=== PATIENT | female | born 1935 | race Caucasian/White ===

== ENCOUNTER → 2016-09-18 | Outpatient (CLI) | payer MEDICARE, OTHER ==
--- NOTE | 2016-09-18 16:52 | RADRPT ---
PROCEDURE: Right knee radiographs. CLINICAL INDICATION: Right knee pain. TECHNIQUE: Three views. Weight bearing. Frontal, lateral, and patellar view. COMPARISON: No prior studies are available for comparison. FINDINGS: There is no fracture or dislocation. The soft tissues are normal. There are degenerative changes with osteophytes arising from all 3 joint compartment margins. There is lateral joint compartment narrowing and subarticular sclerosis. There is no lytic or blastic lesion. There is no radiopaque foreign body. IMPRESSION: 1. Moderate to severe degenerative changes of the right knee. 2. No acute abnormality. RPTAT: QQ .Pradeep Jensen MD, MD Date Time Electronically viewed and signed by .Pradeep Jensen MD, on 09/18/2016 16:52 .R/
--- NOTE | 2016-09-18 16:53 | RADRPT ---
PROCEDURE: Left knee radiographs. CLINICAL INDICATION: Left knee pain. TECHNIQUE: Three views. Weight bearing. Frontal, lateral, and patellar view. COMPARISON: No prior studies are available for comparison. FINDINGS: There is no fracture or dislocation. The soft tissues are normal. There are degenerative changes with osteophytes arising from all 3 joint compartment margins. There is lateral joint compartment subarticular sclerosis. There is no joint space narrowing. There is no lytic or blastic lesion. There is no radiopaque foreign body. IMPRESSION: 1. Mild to moderate degenerative changes of the left knee. 2. No acute abnormality. RPTAT: QQ .Pradeep Jensen MD, MD Date Time Electronically viewed and signed by .Pradeep Jensen MD, MD on 09/18/2016 16:52 .R/
--- NOTE | 2016-09-18 23:48 | HKNOTE ---
DATE OF SERVICE: 09/18/2016 REFERRING PHYSICIAN: Dr. Brandy Payne; [address] [facility], [address] [place] [address]. MAIN COMPLAINT: Pain in both knees, worse on the right side. HISTORY OF MAIN COMPLAINT: Patient is an 80-year-old female who is referred by Dr. Payne with an MR I scan of her knee, for evaluation and treatment. Patient has had pain in both knees for approximately 10 years. There has been no history of injury to the knees. She recently moved to [place] from [place]. She had numerous cortisone injections into both knees in [place]. Since she has moved to [place], Dr. Payne has given her several cor tisone injections into the knees. The last injections have not given her much relief. One of her o rthopedic surgeons in [place] recommended that she have a right knee replacement about 2 years ago. She also states, "I have had a torn meniscus for about 5 years, but I didn't want to do anything abo ut it." PRESENT COMPLAINTS: Her pain is worse in the right knee. Pain varies between moderate to severe. Most of her pain is when she gets up from a sitting position. Neither of her knees locks, feels uns table, or swells. Her pain is aggravated by walking, weightbearing, and stair climbing. She is not able to run. She does not have rest pain or night pain. She takes diclofenac for the pain, and th is helps a fair amount. She has had 2 operations on her lumbar spine. She has no numbness or tingl ing in her legs. She does not use a walking aid. When she gets up and gets going, she can walk jed rly well, but the first 200 or 300 yards are painful. She does not limp except when she is in pain. Her leg lengths feel equal. She does not have a shoe lift. It is not easy for her to clip her to enails, but she can do it. She can put on her shoes and socks on both sides. PAST ORTHOPEDIC HISTORY/PREVIOUS ORTHOPEDIC OPERATIONS: None. PRIOR CORTISONE INTAKE: "Off and on for a long time." (10 years). SOCIAL HISTORY: She has never been an alcoholic. She takes an occasional glass of wine. She has not had any blood tests for arthritis. She has no other joint problems. She has never injur ed her hips or knees. 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 Hypertension. 2. Asthma as a child. 3. An irregular heart. PAST SURGICAL HISTORY: 1. Hysterectomy. 2. Benign breast tumor removed 3. Benign breast lump removed 1979. ALLERGIES: NONE. MEDICATIONS: Lisinopril 1 tablet a day at bedtime, Klor-Con 8 mEq daily at bedtime, misoprostol 1 t ablet daily at bedtime, diclofenac 2 tablets daily, metoprolol 25 mg 1 tablet daily at bedtime. FAMILY HISTORY: Noncontributory. SYSTEMS REVIEW: Age-related failing vision, history of skipping heartbeats, excess urination, hyper tension, leakage of urine, occasional constipation, hemorrhoids. HABITS: Patient quit smoking 40 years ago. She drinks an occasional glass of wine. UNDERCOVER AGENT: Dr. Brandy Payne; [address] [place] [address], [address] [address]. PHYSICAL EXAMINATION GENERAL: The patient is a remarkably youthful and fit-looking 81-year-old female. VITAL SIGNS: Height 5 feet 2 inches, weight 190 pounds. Blood pressure 135/65, temperature 99.0. GAIT: The patient's gait is antalgic. She walks without a walking aid. HIPS: Both hips have full range of motion without pain or tenderness around on either hip. NEUROLOGIC: Motor examination reveals no muscle deficit in the lower extremities. Deep tendon refle xes in the lower extremities: Right knee jerk +, left knee jerk +, right ankle jerk +, left ankle j erk +. Straight leg raising is negative bilaterally at 80 degrees. Lasegue and LUIGI tests are negat virgilio. RIGHT KNEE: The right knee shows normal alignment. Active and passive extension is 0 degrees. Activ e and passive flexion is 135 degrees. The medial and lateral collateral ligaments and cruciate ligam ents are intact. Obi test is negative. There is no effusion, tenderness, scarring, crepitus, or cysts. The patella tracks normally. There is no tenderness on the articular surface of the patella o r in the patellar groove. The Q angle is normal. 50 degrees of valgus alignment. Extension lacks 5 degrees, flexion is to 100 degrees. 6+ crepitus in the knee, none in the patella. 1+ effusion. Ma rked pain on attempting to force the knee into further flexion. LEFT KNEE: The left knee shows normal alignment. Active and passive extension is 0 degrees. Active and passive flexion is 135 degrees. The medial and lateral collateral ligaments and cruciate ligamen ts are intact. Oib test is negative. There is no effusion, tenderness, scarring, crepitus, or cy sts. The patella tracks normally. There is no tenderness on the articular surface of the patella or in the patellar groove. The Q angle is normal. Extension is full. Flexion lacks 25 degrees, 4+ crep itus in the knee, none in the patella. Patella tracks normally. IMAGING: Plain x-rays of the right knee obtained today at the [facility] were re viewed. These show marked valgus alignment of the right knee joint. The lateral compartment is com pletely arthritic with [id number] contact in the lateral compartment, subchondral sclerosis, large osteophytes around the lateral joint line. The patellofemoral joint shows excellent chondral space . Imaging of the left knee obtained today at the [facility] were reviewed. These s how 5 degrees valgus alignment. Marked narrowing of the lateral compartment as well as the medial c ompartment. Patellofemoral joint shows narrowing and lateral subluxation with large osteophytes. MRI scan of the right knee obtained by Dr. Brandy Payne on 08/14/[address] Dayana Sellers as showing "popliteal cyst measuring 5.5 x 1.40 x 0.3 cm. Nuclear degeneration of the anterior crucia te ligament. Multidirectional tear of the posterior horn of the medial meniscus. Mild to moderate chondromalacia medial compartment. Degenerative changes throughout the knee, most prominently the l ateral compartment to include meniscal maceration. DIAGNOSES: 1. Severe symptomatic degenerative osteoarthritis of the right knee. 2. Moderate degenerative osteoarthritis of the left knee with minimal pain. 3. Extensive conservative treatment for right knee arthritis. 4. Hypertension. 5. History of asthma. 6. History of irregular heartbeat. 7. History removal of a benign breast tumor. DISCUSSION: Patient is an 81-year-old female with arthritis of both knees. The recent MRI scan obt ained of the right knee shows a torn lateral meniscus. However, she has none of the classic symptom s of a torn meniscus, and she has quite severe arthritis of the right knee. MANAGEMENT: She is advised that she most certainly will need a right knee replacement at some time in the near future. An arthroscopic operation at this point would be a useless and wasted operation for her. She does not seem to feel that her right knee is very symptomatic at this time, but she h as noticed that the knee arthritis, most certainly will become worse with time, and eventually she w ill need a knee replacement. We also discussed her age; 80 years is approximately the time when health Kelty deteriorates fairly rapidly. We discussed the fact that it may be tate for her to have her knee replacement while she i s still relatively youthful and in good health. Knee arthritis book. Patient was referred to my Website: [employer]. DIAGNOSES: 1. Severe symptomatic degenerative osteoarthritis of the right knee. 2. Moderate degenerative osteoarthritis of the left knee with minimal pain. 3. Extensive conservative treatment for right knee arthritis. 4. Hypertension. 5. History of asthma. 6. History of irregular heartbeat. 7. History removal of a benign breast tumor. Patient will call to schedule her right knee replacement if and when she is ready to proceed. Dictated By: OWEN TAYLOR/EVELIN Conf#: [id number] DID#: [id number]
== END | disposition home or self-care (01) ==
LOC: HKI 16:15
DX: M17.0 Bilateral primary osteoarthritis of knee (principal); I10 Essential (primary) hypertension
CPT/HCPCS: 73562; G0463

== ENCOUNTER → 2016-10-08 | Outpatient (CLI) | payer MEDICARE, OTHER ==
[~2016-10-08] MED LIST: ADV10050 INHALATION; DICL75TA2 PO; FLUT9.9S NASAL; LISI1TAB8 PO; METO25TA7 PO; MISO200T3 PO; POTA-57 PO
--- NOTE | 2016-10-08 22:19 | HKNOTE ---
DATE OF SERVICE: 10/08/2016 Patient comes in for preoperative evaluation. She is scheduled to have a right total knee replaceme nt on 10/09/2016. She is seen on 10/08/2016. She has been cleared for surgery by Dr. Brandy Payne. Numerous questions were asked and answered. She read my booklet on knee arthritis and knee replacem ent surgery. She has not given any blood for autotransfusion. She understands the risks associated with using hospital blood. She is agreeable to using hospital blood if needed. Dictated By: OWEN TAYLOR/NTS Conf#: [id number] DID#: [id number]
== END | disposition home or self-care (01) ==
LOC: HKI 13:08
DX: Z01.818 Encounter for other preprocedural examination (principal); M25.561 Pain in right knee
CPT/HCPCS: G0463

== ENCOUNTER 2016-10-09 06:09 | Inpatient (IN) | payer MEDICARE, OTHER ==
[2016-10-08 15:35] VITALS: BMI 34.8
[~2016-10-09] VITALS: Ht 157.5 cm; Wt 86.6 kg
[2016-10-09] VITALS (28 sets, daily range): BP systolic 92–143; BP diastolic 44–70; PULSE 63–89; RESP 16–20; Ht 157.5 cm; Wt 86.6 kg
[~2016-10-09 06:09] MED LIST changes: +ACETAMINOPHEN 1000MG/100ML IV 100 ML IVPB ONE; -ADV10050 INHALATION; +CELECOXIB 200 MG CAP PO ONE; +DEXAMETHASONE 4 MG/ML 1 ML INJ IV ONE; -FLUT9.9S NASAL; +KNEE PAIN COCKTAIL VANCO INJ SCH; +LACTATED RINGER'S 1,000 ML IV* SCH; +LANSOPRAZOLE 30 MG CAP PO ONE; +ONDANSETRON 4 MG INJ IV ONE; -POTA-57 PO; +SOD CHLORIDE 0.9% IVPB ONE; +TRANEXAMIC ACID IVPB ONE; +VANCOMYCIN 1 GM (PMX) 250 ML IVPB ONE; +oxyCODONE (CR) 10 MG TAB [oxyCONTIN] PO ONE
--- NOTE | 2016-10-09 06:21 | RADRPT ---
PROCEDURE: Chest. CLINICAL INDICATION: Preop evaluation. TECHNIQUE: Single frontal view of the chest was obtained. COMPARISON: None. FINDINGS: The cardiac silhouette is within normal limits. The aortic arch is unremarkable. There is no focal consolidation, vascular congestion or pleural effusion. There is no pneumothorax. IMPRESSION: No evidence for active cardiopulmonary disease. .Sung Meeks MD, MD Date Time Electronically viewed and signed by .Sung Meeks MD, on 10/09/2016 06:20 .T/
[2016-10-09] MEDS ORDERED: BUPIVACAINE 0.5%/EPI (SDV) 30 ML INJ ONE (06:43)
[2016-10-09 06:48] LABS: INR 1.01; PARTIAL THROMBOPLASTIN TIME 31.6 Sec (25.0-35.0); PROTIME 13.3 Sec (12.2-14.2)
[2016-10-09] MEDS ORDERED: POLYMYXIN B 500000 UNIT INJ ONE (06:59)
[2016-10-09] MEDS ORDERED: ROPIVACAINE 0.2% 100 ML ONE (06:59)
[2016-10-09] MEDS ORDERED: TOBRAMYCIN 1.2 GM POWDER ONE (06:59)
[2016-10-09] MEDS ORDERED: VANCOMYCIN 1 GM INJ ONE (06:59)
[2016-10-09] MEDS ORDERED: METHYLENE BLUE 1% 10 ML INJ ONE (06:59)
[2016-10-09] MEDS ORDERED: BUPIVACAINE 0.25%/EPI (SDV) 30 ML INJ ONE (07:00)
[2016-10-09] MEDS ORDERED: SOD CHLORIDE 0.9% IRR SCH ×2 (07:00)
[2016-10-09] MEDS ORDERED: TRANEXAMIC ACID IRR SCH ×2 (07:00)
--- NOTE | 2016-10-09 07:07 | HPN ---
Date/Time of Note Date/Time of Note DATE: 10/09/16 TIME: 07:06 Interval H&P Admission Note Pt. seen H&P reviewed: No system changes NITA GALLOWAY PA-C Oct 09, 2016 07:07
[2016-10-09] MEDS ORDERED: PROPOFOL 20 ML ONE (07:11)
[2016-10-09] MEDS ORDERED: LIDOCAINE 2% (SDV) 5 ML INJ ONE (07:11)
[2016-10-09] MEDS ORDERED: FLUT9.9S NASAL (07:35)
[2016-10-09] MEDS ORDERED: ADV10050 INHALATION (07:35)
[2016-10-09] MEDS ORDERED: POTA-57 PO (07:35)
[2016-10-09] MEDS ORDERED: EPHEDrine SULFATE 50 MG/5 ML SYG ONE (07:55)
[2016-10-09] MEDS ORDERED: BACITRACIN 50000 UNITS INJ IRR ONE (08:44)
[2016-10-09] MEDS ORDERED: ROPIVACAINE 0.2% 100ML BAG INJ ONE (08:47)
--- NOTE | 2016-10-09 10:41 | RADRPT ---
PROCEDURE: Intraoperative imaging of the right knee with fluoroscopy. CLINICAL INDICATION: Right knee pain. Intraoperative. TECHNIQUE: 2 images of the right knee were obtained in the operating room with an image intensifie r. No radiologist was in attendance. 4.6 seconds of fluoroscopy time was used. COMPARISON: 09/18/2016. FINDINGS: Images demonstrate components of a total right knee arthroplasty. IMPRESSION: 1. Intraoperative imaging of the right knee. RPTAT: QQ .Pradeep Jensen MD, MD Date Time Electronically viewed and signed by .Pradeep Jensen MD, MD on 10/09/2016 10:41 .R/
--- NOTE | 2016-10-09 10:42 | RADRPT ---
PROCEDURE: Right knee radiograph. CLINICAL INDICATION: Right knee pain. Intraoperative. TECHNIQUE: Single lateral intraoperative image. COMPARISON: Prior study done earlier the same day. FINDINGS: There are components of a total right knee arthroplasty. IMPRESSION: 1. Satisfactory intraoperative imaging of the right knee. RPTAT: QQ .Pradeep Jensen MD, Date Time Electronically viewed and signed by .Pradeep Jensen MD, on 10/09/2016 10:41 .R/
[2016-10-09] MEDS ORDERED: hydrALAzine 20 MG INJ IV PRN (11:00)
[2016-10-09] MEDS ORDERED: HYDROmorphONE 0.2 MG/ML PCA IV PRN (11:00)
[2016-10-09] MEDS ORDERED: ONDANSETRON 4 MG INJ IV PRN (11:00)
[2016-10-09] MEDS ORDERED: LABETALOL HCL 20MG INJ IV PRN (11:00)
[2016-10-09] MEDS ORDERED: ASPIRIN (EC) 325 MG TAB PO ONE (11:00)
[2016-10-09] MEDS ORDERED: NA PHOSPHATE/BIPHOS 133 ML ENEMA PR PRN (11:00)
[2016-10-09] MEDS ORDERED: MEPERIDINE 25 MG INJ IV PRN (11:00)
[2016-10-09] MEDS ORDERED: BISACODYL 10 MG SUPP PR PRN (11:00)
[2016-10-09] MEDS ORDERED: BETHANECHOL 25 MG TAB PO PRN (11:00)
[2016-10-09] MEDS ORDERED: MAGNESIUM HYDROXIDE 30ML CUP PO PRN (11:00)
[2016-10-09] MEDS ORDERED: MEPERIDINE 10 MG/ML 30 ML PCA IV PRN (11:00)
[2016-10-09] MEDS ORDERED: DOCUSATE SODIUM 100 MG CAP PO ONE (11:00)
[2016-10-09] MEDS ORDERED: METOCLOPRAMIDE 10 MG INJ IV PRN (11:00)
[2016-10-09] MEDS ORDERED: HYDROmorphONE (0.2 MG/ML) 10ML SYG IV PRN ×2 (11:00)
[2016-10-09] MEDS ORDERED: EPHEDrine SULFATE 50 MG/5 ML SYG IV PRN (11:00)
[2016-10-09] MEDS ORDERED: COUMADIN NOTE XX SCH (11:00)
[2016-10-09] MEDS ORDERED: MIDAZOLAM 1 MG/ML 2 ML INJ IV PRN (11:00)
[2016-10-09] MEDS ORDERED: morphine (1 MG/ML) 10ML SYRINGE IV PRN ×2 (11:00)
[2016-10-09] MEDS ORDERED: FENTAnyl 50 MCG/ML VIAL IV PRN ×2 (11:00)
[2016-10-09] MEDS ORDERED: NALOXONE (0.4 MG/ML) INJ IV PRN (11:00)
[2016-10-09] MEDS ORDERED: DIPHENHYDRAMINE 50 MG INJ IV PRN (11:00)
[2016-10-09] MEDS: ONDANSETRON 4 MG INJ IV SCH ×3 (11:00→23:30)
[2016-10-09] MEDS: CEFAZOLIN 1 GM/50 ML (PMX) 50 ML IVPB SCH ×2 (11:38→20:17)
--- NOTE | 2016-10-09 11:41 | OPR ---
DATE OF OPERATION: 10/09/2016 SURGEON: Eliceo Fuentes MD SHIPPING SPECIALIST: DARREL Garrett ANESTHESIOLOGIST: Dr. Rangel PREOPERATIVE DIAGNOSIS: Exceedingly severe degenerative osteoarthritis of the right knee. POSTOPERATIVE DIAGNOSIS: Exceedingly severe degenerative osteoarthritis of the right knee. OPERATION PERFORMED: Total knee replacement (arthroplasty of the knee, condylar plateau medial and lateral compartments with patella resurfacing, CPT 30832). FINDINGS AT SURGERY: Surrounding the right tibia, severe degenerative osteoarthritis of the right k nee in all 3 compartments. There is no normal articular cartilage present anywhere. Most of the la teral compartment and patellofemoral joint had only eburnated bone which on the tibial side was erod ed by several millimeters to give a quite severe valgus alignment to the knee. The tibia was bowed. Using a longitudinal britany, the anterior aspect of the tibial tubercle and the ankle joint imaging w as used to find the best place and alignment for the cutting jig. Because of the severe bowing of t he tibia, it was not possible to align the center of the knee proximally with the center of the ankl e joint. We therefore had to make allowance for the bowing by positioning the proximal end of the a lignment britany in the best possible alignment for the proximal tibia with ____ ankle. The bone was ve ry soft and a stemmed tibial component was therefore used. JUSTIFICATION FOR SURGERY: The knee was found to have end-stage osteoarthritis. The patient is a v marcelle active 81-year-old whose lifestyle is markedly affected by the arthritic knee. An extensive cou rse of conservative care has been tried prior to embarking on the knee replacement operation. There can be no reasonable expectation that any further conservative treatment will make any improvement to this patient's pain level and lifestyle. The risks and complications of the surgery were discuss ed with the patient at the preoperative visit as well as the risks and possible complications of blo od transfusion using hospital blood. The patient is agreeable to using hospital blood if needed. DESCRIPTION OF PROCEDURE: The patient was given intravenous antibiotics 1 hour prior to surgery. A n epidural anesthetic was initiated in the ICU holding area. The patient was taken to the operating room and given a light general anesthetic. The leg, foot, and ankle were prepared and draped in th e usual sterile fashion. The center of the ankle was marked at the midpoint between the 2 malleoli with a sterile marking pen. A tourniquet around the thigh was inflated to 225 mmHg after the leg mckeon d been exsanguinated using an Esmarch bandage. The tourniquet was inflated at the initiation of pro cedure for a short period and was then again reinflated at the time of cementing the components part s. The total tourniquet time was 46 minutes. A longitudinal incision was made over the anterior aspect of the knee. The incision extended from t he tibial tubercle to a point just above the patella. The medial capsule was exposed by sharp and eric estrella dissection, and was incised 1/4 inch medial to the patella. A marking stitch was set on each s peggy of the incision at the midpoint of the capsule so as to enable accurate reapproximation at the e nd of the operation. A vastus split was made in the vastus medialis extending from the superior coretta e of the patella for approximately 5 cm between the line with the muscle fibers. The ends of the mu scle split at the patella were marked with a marking stitch on each side for later accurate reapprox imation. The patella was reflected laterally and osteophytes around the rim of the patella were rem fabiana. Osteophytes along the lateral femoral condyle were removed so as to facilitate lateral reflec tion of the patella. Posteromedial osteophytes were removed on the lateral side as well, so as to f ree up the lateral collateral ligament. Medial femoral osteophytes and posteromedial femoral osteop hytes were also removed at this time. This allowed for the knee to be brought into a more normal al ignment. A segment of bone was cut from the articular surface of the patella using a caliper to det ermine the exact thickness to be removed. The remaining thickness of the patella was 17 mm. The kn ee was flexed, and the patella was displaced laterally without eversion. Osteophytes in the femoral notch were removed. The remnants of the medial and lateral menisci were excised and the cruciate l igaments were excised. The medial collateral ligament was elevated as an osteo-periosteal flap from the proximal tibia. The distal end of the medial collateral ligament remained attached to the tibi a throughout the operation. The tibia was retracted forward with Hohmann retractor, inserted union contract representative ior to the midpoint of the proximal tibia. The tibial jig was set in place in such a way as to alig n longitudinally with the anterior tibial spine, with the junction of the middle and medial 2/3 of t he patella tendon, and with the posterior intercondylar eminence of the tibia. An AP and lateral x- ray was obtained with the alignment jig in place. This showed that the alignment was satisfactory a fter some slight adjustments were made. The posterior slope of the tibia was set at 2 degrees. The tibial cutting block was attached to the proximal tibia with 2 Steinmann pins. An external alignme nt britany was placed on the cutting block to confirm the alignment of the cutting block. An Rayshawn Wing feeler gauge was now placed on the superior aspect of the cutting block to further confirm the post erior slope of the tibia and the depth of the cut to be made. An oscillating saw was used to remove an appropriate amount of bone from the proximal tibia with the healthy side being used to measure t he cutting depth. The lateral femoral condyle of the distal femur was measured to determine the ioana ropriate size for the femoral component. The anterior condyle of the femur was partially removed wi th a rongeur. A medium-sized cutting block was attached to the distal femur with 2 Steinmann pins t hrough the pin holes in the block. The external alignment jig of this cutting block was lined up wi th the anterior surface of the femur and a central intercondylar hole for the intramedullary britany was drilled through the hole in the alignment block. The block was removed. A long [place] nozzle wa s used to flush fat from the intramedullary canal. The appropriately sized cutting block was now at tached to the femur by means of an intramedullary britany. The linking guide was inserted into the slot in the base of the femoral cutting block with the knee set at 90 degrees of flexion and with the li nking guide set flush with the proximal tibial cut in order to set the appropriate rotational alignm ent on the femoral cutting block. Ligament balance was checked at this point and was found to be ve ry satisfactory. Once the rotational alignment had been determined, and the ligaments found to be b alanced, the femoral cutting block was secured to the distal femur with 2 Steinmann pins. The anter ior and posterior cuts of the distal femur were made off the femoral cutting block. The cutting blo ck was removed and a spacer block was used to measure the flexion gap which was found to be 12.5 mm. The same spacer block size without the femoral element was used with the leg in extension to determi ne the amount of distal femur to be removed in the transverse plane. A 5-degree distal cutting bloc k was now set on the femoral intramedullary britany, and the britany was inserted into the intramedullary ca nal. The appropriate amount of bone to be removed was determined. The femoral cutting block was pi nned to the anterior surface of the femur with 2 Steinmann pins. The appropriate amount of bone was resected off the distal femur to give an extension gap equal to the thickness of the flexion gap. The cut needed to be repeated after initial cut in order to produce an extension gap the same size a s the flexion gap. By using the appropriate cutting blocks, the rest of the femoral cuts were made. The femoral trial component was installed and was found to fit perfectly. The femoral trial component was removed. T he proximal tibia was sized, and the appropriate tibial tray selected. The central fixation hole in the tibia was made using the tibial tray template and the appropriate instruments. The femoral and tibial trials and the trial tibial insert were installed, and the patella was prepared to accept th e 32 mm-sized dome component. The trial components were all removed. The tourniquet was inflated. Soft tissues around the knee, especially the posterior capsule, were injected with a mixture of Norman opin, Toradol, morphine, and clonidine. The cut surfaces of the bones were cleaned with pulsatile W ater Jet lavage and thoroughly dried. Sclerotic bone surfaces were drilled with a 1/8-inch drill. The tibial trial component was installed with methyl methacrylate cement followed by the femoral com ponent and finally the patellar component. Cement was used on all 3 components. The cement was fin marga packed into the cut surfaces of the bone and pressurized with a rubber dam in order to get good interdigitation of the cement into the bone. A lateral x-ray of the knee was obtained while the jennifer ent was hardening with the anticipated appropriate spacer trial in place. Once the cement was hard, all extraneous cement was removed. The cut edges of the medial capsule were held together at the m idpoint with a towel clip, and the knee was put through a full range of motion. The patella was fou nd to track satisfactorily. A lateral release was not required. At this point, the patella was fou nd to track very well in the patellar groove of the femoral component. The knee was frequently irrigated with normal saline containing antibiotics with pulsatile lavage th roughout the entire operation as a prophylactic measure against infection. Once the cement was hard , the tourniquet was released. Bleeding points were cauterized. The total tourniquet time was 48 m inutes. The patient's vital signs remained stable throughout the operation. The permanent rotating bearing was installed. Superficial and deep Hemovac drains were set in place . The wound was closed using interrupted Vicryl on the capsule with FiberWire used at strategic poi nts such as the attachment of the distal ends of the vastus medialis at the split, and the tibial te ndon was also attached to the osteo-periosteal flap with FiberWire. The rest of the medial capsule was closed with interrupted Vicryl. A subcuticular stitch was inserted and joshua were used on the skin. The usual sterile dressings were applied. A Arben-Guillen compression dressing was applied a fter a sterile cooling pad had been set in place against the deep tissues by sterile cast padding. The patient's condition at the end of the procedure was satisfactory. Vital signs remained stable t hroughout the operation. The patient returned to the recovery room in stable condition. X-rays wer e obtained in the recovery room. Calf pumps were applied to both legs in the operating room. There were no problems or complications as far as we know. The sponge and instrument counts were correct . COMPONENT INFORMATION: KNEE IMPLANT TYPE: LCS. FEMORAL COMPONENT SIZE: Standard TIBIAL COMPONENT SIZE: #3 with a 30 mm extension PATELLAR COMPONENT SIZE: 32 mm dome TIBIAL INSERT: ____ IMPLANT REFERENCE LIBRARY ASSISTANT: The [employer] [place], [place]. TOTAL TOURNIQUET TIME: 46 minutes TOTAL BLOOD LOSS: Approximately 150 mL Dictated By: ELICEO TAYLOR/EVELIN Conf#: [id number] DID#: [id number]
--- NOTE | 2016-10-09 12:10 | RADRPT ---
PROCEDURE: XR Knee. CLINICAL INDICATION: Postoperative evaluation right knee TECHNIQUE: 2 images of the right knee are available for review. COMPARISON: None available FINDINGS: There is evidence of a recent constrained total right knee arthroplasty in anatomic alignment. Ther e is anterior soft tissue swelling and gas as well as a drain and anterior skin joshua. There is n o acute fracture. IMPRESSION: Recent constrained right knee total arthroplasty as described above. RPTAT: [facility]U .Enrique Savage MD, MD Date Time Electronically viewed and signed by .Enrique Savage MD, MD on 10/09/2016 12:09 .K/
[2016-10-09] MEDS: ACETAMINOPHEN 1000MG/100ML IV 100 ML IVPB SCH ×2 (13:11→19:42)
[2016-10-09] MEDS: DEXTROSE 5%-LR 1,000 ML IV SCH ×2 (13:11→23:12)
--- NOTE | 2016-10-09 13:45 | CONS ---
DATE OF ADMISSION: 10/09/2016 DATE OF CONSULTATION: 10/09/2016 TYPE OF CONSULTATION: Medical. Thank you, Dr. Fuentes, for asking me to participate in the medical management of this patient. REASON FOR CONSULTATION: To manage this patient's hypertension, asthma, and irregular heartbeat. HISTORY OF PRESENT ILLNESS: This 81-year-old female has been having increasing pain in both knees. She has been having more pain in her right knee. The patient has failed medical therapy and decide d to undergo a total knee replacement. She is followed by a automotive generator repairer, Dr. Brandy aPyne. There is a note on the chart from Dr. Payne. PAST MEDICAL HISTORY: Remarkable for hypertension, asthma as a child, and irregular heartbeat. PAST SURGICAL HISTORY: Hysterectomy, benign breast tumor removed, benign breast lump removed in 198 0. ALLERGIES TO MEDICATIONS: NONE. CURRENT MEDICATIONS: Include the followin. Lisinopril HCT 20/25 which she takes at night and took 1 last night. 2. Metoprolol XL 25 mg daily which she took last night. 3. Diclofenac 75 mg twice a day which she discontinued preoperatively. 4. Potassium chloride 20 mEq daily. 5. Advair Diskus 100/50 twice a day. 6. Fluticasone allergy relief 1 spray in each nostril twice a day. FAMILY HISTORY: Unremarkable. SOCIAL HISTORY: The patient quit smoking 40 years ago. She drinks alcohol occasionally. PHYSICAL EXAMINATION: GENERAL: At this time reveals a well-developed female in no apparent distress. VITAL SIGNS: Pulse is 68, respirations 18, blood pressure 102/47, O2 saturation of 97% on 2 liter n roma cannula. HEENT: Head normocephalic. Eyes: Extraocular muscles intact. Nose and mouth are normal. NECK: Supple. No neck vein distention. LUNGS: Clear to auscultation. HEART: Regular rhythm. No murmurs, gallops or rubs. ABDOMEN: Soft, nontender, no masses or megaly. EXTREMITIES: No peripheral edema. IMPRESSION: This patient is now postop a right total knee replacement. She denies any chest pain o r shortness of breath. Her blood pressure is low normal, but she is asymptomatic with this. PLAN: 1. Resume some routine medications. 2. Check labs in the morning. 3. Postop total knee replacement protocol. 4. I will follow the patient along with you. Dictated By: ILENE TOPETE MD, ND/EVELIN Conf#: [id number] DID#: [id number]
[2016-10-09] MEDS ORDERED: BACITRACIN 50000 UNITS INJ ONE (14:51)
[2016-10-09] MEDS ORDERED: TRANEXAMIC ACID 870 MG in SOD CHLORIDE 0.9% 100 ML IVPB ONE ×2 (15:00→18:00)
[2016-10-09] MEDS ORDERED: DIPHENHYDRAMINE 50 MG INJ IM PRN (16:00)
[2016-10-09] MEDS: FLUTICASONE 0.05% 16 GM NAS SPRAY NASAL SCH (20:18)
[2016-10-09] MEDS: SALMETEROL/FLUTICASONE 100/50 INHA INH SCH (20:18)
[2016-10-09] MEDS ORDERED: ZOLPIDEM 5 MG TAB PO PRN (21:00)
[2016-10-10 00:32] VITALS: BP 98/55; RESP 20
[2016-10-10 03:00] VITALS: BP 134/60; PULSE 110; RESP 16
[2016-10-10] MEDS: ACETAMINOPHEN 1000MG/100ML IV 100 ML IVPB SCH ×3 (03:01→18:12)
[2016-10-10] MEDS: METOPROLOL (XL) 25 MG TAB PO SCH ×2 (03:01→20:58)
[2016-10-10] MEDS: CEFAZOLIN 1 GM/50 ML (PMX) 50 ML IVPB SCH (03:35)
[2016-10-10 05:00] VITALS: BP 110/62; PULSE 78; RESP 18
[2016-10-10 05:16] LABS: ADD SCAN DIFF NO
[2016-10-10] MEDS: ONDANSETRON 4 MG INJ IV SCH (05:18)
[2016-10-10 05:29] LABS: ABNORMAL IP MESSAGE 1; BASOPHILS % 0.1 % (0.0-2.0); EOSINOPHILS % 0.1 % (0.0-7.0); HEMOGLOBIN 10.8 g/dl (12.0-16.0); LYMPHOCYTES # 1.3 10^3/ul (0.8-2.9); LYMPHOCYTES % 7.2 % (15.0-51.0); MEAN CORPUSCULAR HEMOGLOBIN 32.1 pg (29.0-33.0); MEAN CORPUSCULAR HGB CONC 31.8 g/dl (32.0-37.0); MEAN CORPUSCULAR VOLUME 101.2 fl (82.0-101.0); MEAN PLATELET VOLUME 10.6 fl (7.4-10.4); MONOCYTES % 10.7 % (0.0-11.0); NEUTROPHIL # 14.9 10^3/ul (1.6-7.5); NEUTROPHILS % 81.3 % (39.0-77.0); PLATELET COUNT 193 10^3/UL (140-415); RED BLOOD COUNT 3.36 10^6/ul (4.20-5.40); RED CELL DISTRIBUTION WIDTH 12.5 % (11.5-14.5); WHITE BLOOD COUNT 18.3 10^3/ul (4.8-10.8)
[2016-10-10 05:39] LABS: ALBUMIN 2.9 g/dl (3.3-4.9); POTASSIUM 4.1 mmol/L (3.5-5.1)
[2016-10-10 05:42] LABS: ALBUMIN/GLOBULIN RATIO 1.11; BILIRUBIN,INDIRECT 0.2 mg/dl (0-1.1); BILIRUBIN,TOTAL 0.2 mg/dl (0.2-1.3); CALCIUM 8.3 mg/dl (8.4-10.2); CREATININE 0.95 mg/dl (0.44-1.00); TOTAL PROTEIN 5.5 g/dl (6.1-8.1)
[2016-10-10] MEDS ORDERED: KETOROLAC 15 MG INJ INJ PRN (06:00)
[2016-10-10] MEDS ORDERED: BUPIVACAINE 0.25%/EPI (SDV) 30 ML INJ INJ PRN (06:00)
[2016-10-10] MEDS: DEXAMETHASONE 4 MG/ML 1 ML INJ IV SCH (06:31)
[2016-10-10] MEDS: DOCUSATE SODIUM 100 MG CAP PO SCH ×2 (08:46→20:52)
[2016-10-10] MEDS: FERROUS FUMARATE (SR) TAB PO SCH ×2 (08:46→20:52)
[2016-10-10] MEDS: ASPIRIN (EC) 325 MG TAB PO SCH ×2 (08:46→20:52)
[2016-10-10] MEDS: SENNA/DOCUSATE NA (8.6MG/50MG) TAB PO PRN ×2 (08:46→18:11)
[2016-10-10] MEDS: SALMETEROL/FLUTICASONE 100/50 INHA INH SCH ×2 (08:47→20:52)
[2016-10-10] MEDS: FLUTICASONE 0.05% 16 GM NAS SPRAY NASAL SCH ×2 (08:47→20:52)
[2016-10-10] MEDS: CELECOXIB 200 MG CAP PO SCH ×2 (08:47→20:52)
[2016-10-10] MEDS ORDERED: oxyCODONE 5 MG TAB PO PRN (09:00)
--- NOTE | 2016-10-10 09:40 | CONS ---
Date/Time of Note Date/Time of Note DATE: 10/10/16 TIME: 09:36 Assessment/Plan Assessment/Plan Chief Complaint/Hosp Course 1. she is 1 day post op a R TKR . She is doing well . 2. continue current medication and PT . Problems: Consultation Date/Type/Reason Admit Date/Time Oct 09, 2016 at 06:09 Initial Consult Date 24 HR Interval Summary Free Text/Dictation She is one day post op a R TKR . She was up walking with PT and is doing well . Constitutional: improved, no complaints Exam/Review of Systems Vital Signs Vitals Vital Signs Date Time Temp Pulse Resp B/P Pulse Ox O2 Delivery O2 Flow Rate FiO2 10/10/16 05:00 78 18 110/62 98 Nasal Cannula 2.0 10/10/16 03:00 98.5 Intake and Output 10/09/16 10/09/16 10/10/16 15:00 23:00 07:00 Intake Total 2317.26 ml 1427.4 ml 1310 ml Output Total 175 ml 800 ml 860 ml Balance 2142.26 ml 627.4 ml 450 ml Exam Constitutional: alert, oriented, well developed Psych: nl mood/affect, no complaints Respiratory: clear to auscultation, normal air movement Cardiovascular: regular rate and rhythm Gastrointestinal: soft Musculoskeletal: nl extremities to inspection Results Result Diagram: 10/10/165 10/10/16 0445 Results 24 hrs Laboratory Tests Test 10/10/16 04:45 White Blood Count 18.3 H Red Blood Count 3.36 L Hemoglobin 10.8 L Hematocrit 34.0 L Mean Corpuscular Volume 101.2 H Mean Corpuscular Hemoglobin 32.1 Mean Corpuscular Hemoglobin Concent 31.8 L Red Cell Distribution Width 12.5 Platelet Count 193 Mean Platelet Volume 10.6 H Neutrophils % 81.3 H Lymphocytes % 7.2 L Monocytes % 10.7 Eosinophils % 0.1 Basophils % 0.1 Nucleated Red Blood Cells % 0.0 Neutrophils # 14.9 H Lymphocytes # 1.3 Monocytes # 2.0 H Eosinophils # 0.0 Basophils # 0.0 Nucleated Red Blood Cells # 0.0 Sodium Level 139 Potassium Level 4.1 Chloride Level 104 Carbon Dioxide Level 27 Anion Gap 12 Blood Urea Nitrogen 24 H Creatinine 0.95 Glucose Level 140 Calcium Level 8.3 L Total Bilirubin 0.2 Direct Bilirubin 0.00 Indirect Bilirubin 0.2 Aspartate Amino Transf (AST/SGOT) 21 Alanine Aminotransferase (ALT/SGPT) 22 Alkaline Phosphatase 75 Total Protein 5.5 L Albumin 2.9 L Globulin 2.60 Albumin/Globulin Ratio 1.11 Medications Medications Current Medications Dextrose/Lactated Ringer's (D5-Lr) 1,000 ml @ 80 mls/hr [id number] IV Last administered on 10/09/16 13:11; Admin Dose 80 MLS/HR; Start 10/09/16 at 10:42 Oxycodone HCl (Roxicodone) 20 mg Q3H PRN PO PAIN LEVEL 8-10; Start 10/10/16 at 09:00 Oxycodone HCl (Roxicodone) 10 mg Q3H PRN PO PAIN LEVEL 4-7; Start 10/10/16 at 09:00 Oxycodone HCl 5 mg 5 mg Q3H PRN PO PAIN LEVEL 1-3; Start 10/10/16 at 09:00 Acetaminophen (Ofirmev 1000mg/ 100ml Iv) 100 ml @ 400 mls/hr Q8H IVPB Last administered on 10/10/16 03:01; Admin Dose 400 MLS/HR; Start 10/09/16 at 11:00 ; Stop 10/11/16 at 03:14 Zolpidem Tartrate (Ambien) 5 mg HS PRN PO INSOMNIA; Start 10/09/16 at 21:00 Miscellaneous Information (Note) NOTE XX ; Start 10/09/16 at 11:00 Aspirin (Ecotrin) 325 mg BID PO Last administered on 10/10/16 08:46; Admin Dose 325 MG; Start 10/10/16 at 09:00 Celecoxib (Celebrex) 200 mg BID PO Last administered on 10/10/16 08:47; Admin Dose 200 MG; Start 10/10/16 at 09:00 Dexamethasone (Decadron) 4 mg DAILY@07 IV Last administered on 10/10/16 06:31 ; Admin Dose 4 MG; Start 10/10/16 at 07:00; Stop 10/13/16 at 06:59 Pantoprazole (Protonix Tab) 40 mg DAILY@06 PO ; Start 10/11/16 at 06:00 Docusate Sodium/ Ferrous Fumarate (Pauly-Sequels) 1 tab BID PO Last administered on 10/10/16 08:46; Admin Dose 1 TAB; Start 10/10/16 at 09:00 Docusate Sodium (Colace) 200 mg BID PO Last administered on 10/10/16 08:46; Admin Dose 200 MG; Start 10/10/16 at 09:00; Stop 10/13/16 at 08:59 Simethicone (Mylicon) 80 mg TID PRN PO DISTENSION/GAS/BLOATING; Start 10/09/16 at 11:00 Senna/Docusate Sodium (Senokot-S) 2 tab BID PRN PO CONSTIPATION Last administered on 10/10/16 08:46; Admin Dose 2 TAB; Start 10/09/16 at 11:00 Magnesium Hydroxide (Milk Of Mag) 30 ml HS PRN PO CONSTIPATION; Start 10/09/16 at 11:00 Bisacodyl (Dulcolax Supp) 10 mg DAILY PRN [place] CONSTIPATION; Start 10/09/16 at 11 :00 Sodium Biphosphate/ Sodium Phosphate (Fleet Enema) 133 ml DAILY PRN [place] CONSTIPATION; Start 10/09/16 at 11:00 Diphenhydramine HCl (Benadryl) 25 mg Q4H PRN IM ITCHING OR RASH; Start at 16:00 Ketorolac Tromethamine (Toradol) 15 mg DAILY@06 PRN INJ ADMINSTER BY SURGEON ONLY; Start 10/10/16 at 06:00; Stop 10/14/16 at 05:59 Bupivacaine HCl/ Epinephrine Bitart (Marcaine 0.25%/ Epi (Sdv) 30 ml) 20 ml DAILY@06 PRN INJ ADMINSTER BY SURGEON ONLY; Start 10/10/16 at 06:00; Stop at 05:59 Naloxone HCl (Narcan) 0.2 mg Q2M PRN IV DECREASED REPIRATORY RATE; Start at 11:00 Fluticasone Propionate (Flonase 0.05% Nasal) 1 spray BID NASAL Last administered on 10/10/16 08:47; Admin Dose 1 SPRAY; Start 10/09/16 at 21:00 Metoprolol Succinate (Toprol Xl) 25 mg DAILY PO Last administered on 10/10/16 03:01; Admin Dose 25 MG; Start 10/10/16 at 03:00 Salmeterol Xinafoate/ Fluticasone (Advair 100/50 Diskus) 1 inh BID INH Last administered on 10/10/16t 08:47; Admin Dose 1 INH; Start 10/09/16 at 21:00 ILENE TOPETE MD Oct 10, 2016 09:40
--- NOTE | 2016-10-10 11:46 | PN ---
Date/Time of Note Date/Time of Note DATE: 10/10/16 TIME: 11:43 Assessment/Plan VTE Prophylaxis VTE Prophylaxis Intervention: ambulation, anti-embolic stocking, SCD's, other ( Aspirin 325 mg twice daily.) Lines/Catheters IV Catheter Type (from Nrsg): Peripheral IV Weeks in Place (from Nrsg): Yes Assessment/Plan Assessment/Plan -Hemovac Removed Today. 420 cc output. -Pain Cocktail Given -Pain Meds as needed -Dress change performed today -OOB with PT -ASA/SCDs for DVT Prophylaxis -Elevated white blood cell count of 18.3. Wound looks clean dry and intact with no signs of infection. Discussed with Dr. Fuentes and recommends Abx of IV Vanco for infection prophylaxis. -Continue monitoring with Internal Medicine -Patient Stable Subjective 24 Hr Interval Summary 81-year-old female postop day 1 status post right total knee arthroplasty. Patient denies any pain complaints. No PT was performed on the day of surgery the patient was up and out of bed with physical therapy today. She states that she was able to walk down to the gerardo. Denies any discomfort. Denies any chest pain/tightness, shortness of breath or calf pain. Patient did have increased drainage from Hemovac site. Constitutional: ambulates, no complaints Pain Control: well controlled Exam/Review of Systems Vital Signs Vitals Vital Signs Date Time Temp Pulse Resp B/P Pulse Ox O2 Delivery O2 Flow Rate FiO2 10/10/16 05:00 78 18 110/62 98 Nasal Cannula 2.0 10/10/16 03:00 98.5 Intake and Output 10/09/16 10/09/16 10/10/16 15:00 23:00 07:00 Intake Total 2317.26 ml 1427.4 ml 1310 ml Output Total 175 ml 800 ml 860 ml Balance 2142.26 ml 627.4 ml 450 ml Exam Free Text/Dictation -Hemovac: Intact -Pain Cocktail Drains: Intact -Incision: Clean, Dry and Intact without any redness or drainage -5/5 Tibialis Anterior, EHL Gastrocnemius/Soleus and Peroneals -About 5 lag from full extension. Patient able to actively flex up to 90. -Normal Sensation -Palpable DP/PT, Capillary Refill <2 secs -No Distal Edema -Negative Gary Sign/No calf pain -Toes Freely Movable Constitutional: alert, oriented, well developed Results Result Diagram: 10/10/16 0445 10/10/16 0445 NITA GALLOWAY PA-C Oct 10, 2016 11:46 NITA GALLOWAY PA-C Oct 10, 2016 11:46
[2016-10-10] MEDS ORDERED: VANCOMYCIN IV PER PHARMACY XX SCH (12:30)
[2016-10-10] MEDS ORDERED: VANCOMYCIN 1.5 GM in SOD CHLORIDE 0.9% 250 ML IVPB SCH (14:00)
[2016-10-10 19:53] VITALS: BP 120/57; RESP 20
[2016-10-10] MEDS: POLYETHYLENE GLYCOL 17 GM PACKET PO SCH (22:22)
[2016-10-11] MEDS: ACETAMINOPHEN 1000MG/100ML IV 100 ML IVPB SCH (03:31)
[2016-10-11 05:44] LABS: ADD SCAN DIFF NO
[2016-10-11 06:03] LABS: ABNORMAL IP MESSAGE 1; BASOPHILS % 0.2 % (0.0-2.0); EOSINOPHILS # 0.2 10^3/ul (0.0-0.5); HEMATOCRIT 33.6 % (37.0-47.0); HEMOGLOBIN 11.1 g/dl (12.0-16.0); LYMPHOCYTES # 2.4 10^3/ul (0.8-2.9); LYMPHOCYTES % 15.9 % (15.0-51.0); MEAN CORPUSCULAR HEMOGLOBIN 32.9 pg (29.0-33.0); MEAN CORPUSCULAR VOLUME 99.7 fl (82.0-101.0); MEAN PLATELET VOLUME 11.2 fl (7.4-10.4); MONOCYTE # 2.3 10^3/ul (0.3-0.9); NEUTROPHIL # 10.2 10^3/ul (1.6-7.5); NEUTROPHILS % 67.5 % (39.0-77.0); PLATELET COUNT 184 10^3/UL (140-415); RED BLOOD COUNT 3.37 10^6/ul (4.20-5.40); RED CELL DISTRIBUTION WIDTH 12.8 % (11.5-14.5); WHITE BLOOD COUNT 15.1 10^3/ul (4.8-10.8)
[2016-10-11] MEDS: DEXAMETHASONE 4 MG/ML 1 ML INJ IV SCH (06:39)
[2016-10-11] MEDS: PANTOPRAZOLE (EC) 40 MG TAB PO SCH (06:39)
[2016-10-11] MEDS: oxyCODONE 5 MG TAB PO PRN ×4 (06:42→23:00)
--- NOTE | 2016-10-11 07:49 | PN ---
Date/Time of Note Date/Time of Note DATE: 10/11/16 TIME: 07:45 Assessment/Plan VTE Prophylaxis VTE Prophylaxis Intervention: ambulation, anti-embolic stocking, SCD's, other ( Aspirin 325 mg twice daily) Lines/Catheters IV Catheter Type (from Nrsg): Saline Lock Weeks in Place (from Nrsg): Yes Assessment/Plan Assessment/Plan -Pain Cocktail Given. Drains removed. Dermabond applied over drain site. -Pain Meds as needed -Patient has issue with copayment for celecoxib. It was explained that if this is of great concern, she may use anti-inflammatory status post surgery such as ibuprofen or naproxen (with specific doses for each respective medication discussed in detail) but she states that she will continue with celecoxib status post surgery upon discharge. -Dress change performed today -OOB with PT -ASA/SCDs for DVT Prophylaxis -Continue monitoring with Internal Medicine -Patient Stable. If white blood cell count continues to trend downward, likely discharge home tomorrow with home health. Subjective 24 Hr Interval Summary 81-year-old female postop day 2 status post right total knee arthroplasty. Denies any pain complaints of the right knee. Patient is now up and out of bed and walking throughout the hallways. She states that she is able to walk down the gerardo and back. Denies any chest pain/tightness, shortness of breath, or calf pain. Patient continues to be pleased status post surgery. Original plan was to potentially discharge home today but patient had elevated white blood cell count of 18.3. Currently under vancomycin antibiotics. Labs continue to trend downward as she is now at 15.1 in regards to her white blood cell count. She has developed no abnormal temperature status post surgery. Constitutional: no complaints Pain Control: well controlled Exam/Review of Systems Vital Signs Vitals Vital Signs Date Time Temp Pulse Resp B/P Pulse Ox O2 Delivery O2 Flow Rate FiO2 10/10/16 19:53 98.6 70 20 120/57 100 10/10/16 05:00 Nasal Cannula 2.0 Intake and Output 10/10/16 10/10/16 10/11/16 15:00 23:00 07:00 Intake Total 1180 ml 800 ml Output Total 800 ml 900 ml Balance 380 ml -100 ml Exam Free Text/Dictation -Hemovac: Removed -Pain Cocktail Drains: Intact -Incision: Clean, Dry and Intact with mild redness around surgical wound or drainage -5/5 Tibialis Anterior, EHL Gastrocnemius/Soleus and Peroneals -Range of motion showing 5 lag from full extension. Patient is able to actively flex up to 80 today. -Normal Sensation -Palpable DP/PT, Capillary Refill <2 secs -No Distal Edema -Negative Gary Sign/No calf pain -Toes Freely Movable Constitutional: alert, oriented, well developed Results Result Diagram: 10/11/16 0450 10/10/16 0445 NITA GALLOWAY PA-C Oct 11, 2016 07:49
--- NOTE | 2016-10-11 08:15 | PDOCDIS ---
Discharge Instructions DIAGNOSIS Discharge Diagnosis: Status post right total knee arthroplasty CONDITION Patient Condition: Stable HOME CARE INSTRUCTIONS: Diet Instructions: RegularSpecial Diet: CLEARS-ADAT ACTIVITY: Activity Restrictions: Slowly Increase Activity Rest between Activity Avoid heavy lifting No Sexual Activity Do not Drive Do not operate Machinery Avoid Heavy Housework Keep Limb Elevated Weight Bearing (As tolerated. May use front wheeled walker for assisted ambulation. Gradually work towards independent ambulation when comfortable.) Bathing Restrictions: Shower (Using Tegaderm with pad. Use daily prior to shower and may remove after shower. May stop using Tegaderm with pad after joshua are removed around 10 days postop.) FOLLOW UP/APPOINTMENTS Appointments 10/30/2016 at 2:15 PM Continue DVT prophylaxis. NITA GALLOWAY PA-C Oct 11, 2016 08:15
[2016-10-11 08:22] VITALS: BP 96/54; RESP 19
[2016-10-11] MEDS: FERROUS FUMARATE (SR) TAB PO SCH ×2 (08:43→20:55)
[2016-10-11] MEDS: SALMETEROL/FLUTICASONE 100/50 INHA INH SCH ×2 (08:44→20:55)
[2016-10-11] MEDS: DOCUSATE SODIUM 100 MG CAP PO SCH ×2 (08:44→20:55)
[2016-10-11] MEDS: FLUTICASONE 0.05% 16 GM NAS SPRAY NASAL SCH ×2 (08:44→20:55)
[2016-10-11] MEDS: ASPIRIN (EC) 325 MG TAB PO SCH ×2 (08:44→20:55)
[2016-10-11] MEDS: CELECOXIB 200 MG CAP PO SCH ×2 (08:44→20:55)
[2016-10-11] MEDS: POLYETHYLENE GLYCOL 17 GM PACKET PO SCH ×3 (08:44→21:08)
[2016-10-11] MEDS: METOPROLOL (XL) 25 MG TAB PO SCH (08:45)
--- NOTE | 2016-10-11 08:53 | CONS ---
Date/Time of Note Date/Time of Note DATE: 10/11/16 TIME: 08:52 Assessment/Plan Assessment/Plan Chief Complaint/Hosp Course 1. she is 2 days post op a R TKR . She is doing well . 2. continue current medication and PT . Problems: Consultation Date/Type/Reason Admit Date/Time Oct 09, 2016 at 06:09 24 HR Interval Summary Free Text/Dictation she is 2 days post op a R TKR . She is doing well . Constitutional: improved, no complaints Exam/Review of Systems Vital Signs Vitals Vital Signs Date Time Temp Pulse Resp B/P Pulse Ox O2 Delivery O2 Flow Rate FiO2 10/11/16 08:22 98.0 62 19 96/54 98 10/10/16 05:00 Nasal Cannula 2.0 Intake and Output 10/10/16 10/10/16 10/11/16 15:00 23:00 07:00 Intake Total 1180 ml 800 ml Output Total 800 ml 900 ml Balance 380 ml -100 ml Exam Constitutional: alert, oriented, well developed Psych: nl mood/affect, no complaints Respiratory: clear to auscultation, normal air movement Cardiovascular: regular rate and rhythm Gastrointestinal: soft Musculoskeletal: nl extremities to inspection Results Result Diagram: 10/11/16 0450 10/10/16 0445 Results 24 hrs Laboratory Tests Test 10/11/16 04:50 White Blood Count 15.1 H Red Blood Count 3.37 L Hemoglobin 11.1 L Hematocrit 33.6 L Mean Corpuscular Volume 99.7 Mean Corpuscular Hemoglobin 32.9 Mean Corpuscular Hemoglobin Concent 33.0 Red Cell Distribution Width 12.8 Platelet Count 184 Mean Platelet Volume 11.2 H Neutrophils % 67.5 Lymphocytes % 15.9 Monocytes % 15.0 H Eosinophils % 1.0 Basophils % 0.2 Nucleated Red Blood Cells % 0.0 Neutrophils # 10.2 H Lymphocytes # 2.4 Monocytes # 2.3 H Eosinophils # 0.2 Basophils # 0.0 Nucleated Red Blood Cells # 0.0 Medications Medications Current Medications Oxycodone HCl (Roxicodone) 20 mg Q3H PRN PO PAIN LEVEL 8-10; Start 10/10/16 at 09:00 Oxycodone HCl (Roxicodone) 10 mg Q3H PRN PO PAIN LEVEL 4-7 Last administered on 10/11/16t 06:42; Admin Dose 10 MG; Start 10/10/16 at 09:00 Oxycodone HCl (Roxicodone) 5 mg Q3H PRN PO PAIN LEVEL 1-3; Start 10/10/16 at 09 :00 Zolpidem Tartrate (Ambien) 5 mg HS PRN PO INSOMNIA; Start 10/09/16 at 21:00 Miscellaneous Information (Note) NOTE XX ; Start 10/09/16 at 11:00 Aspirin (Ecotrin) 325 mg BID PO Last administered on 10/11/16 08:44; Admin Dose 325 MG; Start 10/10/16 at 09:00 Celecoxib (Celebrex) 200 mg BID PO Last administered on 10/11/16 08:44; Admin Dose 200 MG; Start 10/10/16 at 09:00 Dexamethasone (Decadron) 4 mg DAILY@07 IV Last administered on 10/11/16 06:39 ; Admin Dose 4 MG; Start 10/10/16 at 07:00; Stop 10/13/16 at 06:59 Pantoprazole (Protonix Tab) 40 mg DAILY@06 PO Last administered on 10/11/16 06 :39; Admin Dose 40 MG; Start 10/11/16 at 06:00 Docusate Sodium/ Ferrous Fumarate (Pauly-Sequels) 1 tab BID PO Last administered on 10/11/16 08:43; Admin Dose 1 TAB; Start 10/10/16 at 09:00 Docusate Sodium (Colace) 200 mg BID PO Last administered on 10/11/16 08:44; Admin Dose 200 MG; Start 10/10/16 at 09:00; Stop 10/13/16 at 08:59 Simethicone (Mylicon) 80 mg TID PRN PO DISTENSION/GAS/BLOATING; Start 10/09/16 at 11:00 Senna/Docusate Sodium (Senokot-S) 2 tab BID PRN PO CONSTIPATION Last administered on 10/10/16 18:11; Admin Dose 2 TAB; Start 10/09/16 at 11:00 Magnesium Hydroxide (Milk Of Mag) 30 ml HS PRN PO CONSTIPATION; Start 10/09/16 at 11:00 Bisacodyl (Dulcolax Supp) 10 mg DAILY PRN [place] CONSTIPATION; Start 10/09/16 at 11 :00 Sodium Biphosphate/ Sodium Phosphate (Fleet Enema) 133 ml DAILY PRN [place] CONSTIPATION; Start 10/09/16 at 11:00 Diphenhydramine HCl (Benadryl) 25 mg Q4H PRN IM ITCHING OR RASH; Start at 16:00 Ketorolac Tromethamine (Toradol) 15 mg DAILY@06 PRN INJ ADMINSTER BY SURGEON ONLY; Start 10/10/16 at 06:00; Stop 10/14/16 at 05:59 Bupivacaine HCl/ Epinephrine Bitart (Marcaine 0.25%/ Epi (Sdv) 30 ml) 20 ml DAILY@06 PRN INJ ADMINSTER BY SURGEON ONLY; Start 10/10/16 at 06:00; Stop at 05:59 Naloxone HCl (Narcan) 0.2 mg Q2M PRN IV DECREASED REPIRATORY RATE; Start at 11:00 Fluticasone Propionate (Flonase 0.05% Nasal) 1 spray BID NASAL Last administered on 10/11/16 08:44; Admin Dose 1 SPRAY; Start 10/09/16 at 21:00 Metoprolol Succinate (Toprol Xl) 25 mg DAILY PO Last administered on 10/10/16 20:58; Admin Dose 25 MG; Start 10/10/16 at 03:00 Salmeterol Xinafoate/ Fluticasone 1 inh 1 inh BID INH Last administered on 10/11 08:44; Admin Dose 1 INH; Start 10/09/16 at 21:00 Vancomycin HCl (Vancocin) 250 ml @ 125 mls/hr Q24H IVPB ; Start 10/11/16 at 15: 00 Polyethylene Glycol (Miralax) 17 gm DAILY PO Last administered on 10/10/16 22: 22; Admin Dose 17 GM; Start 10/10/16 at 19:00 ILENE TOPETE MD Oct 11, 2016 08:53
[2016-10-11] MEDS ORDERED: ONDANSETRON 4 MG INJ IV PRN (11:00)
[2016-10-11] MEDS: VANCOMYCIN 1 GM in NS 250 ML IVPB SCH (15:30)
[2016-10-11 20:10] VITALS: BP 108/64; PULSE 72; RESP 18
[2016-10-12] MEDS: oxyCODONE 5 MG TAB PO PRN (01:36)
[2016-10-12 05:09] LABS: ADD SCAN DIFF NO
[2016-10-12 05:18] LABS: ABNORMAL IP MESSAGE 1; BASOPHILS % 0.3 % (0.0-2.0); EOSINOPHILS # 0.3 10^3/ul (0.0-0.5); EOSINOPHILS % 1.9 % (0.0-7.0); HEMATOCRIT 30.4 % (37.0-47.0); HEMOGLOBIN 9.6 g/dl (12.0-16.0); LYMPHOCYTES # 2.8 10^3/ul (0.8-2.9); MEAN CORPUSCULAR HEMOGLOBIN 32.1 pg (29.0-33.0); MEAN CORPUSCULAR HGB CONC 31.6 g/dl (32.0-37.0); MEAN CORPUSCULAR VOLUME 101.7 fl (82.0-101.0); MEAN PLATELET VOLUME 11.1 fl (7.4-10.4); MONOCYTE # 1.8 10^3/ul (0.3-0.9); NEUTROPHIL # 8.2 10^3/ul (1.6-7.5); NEUTROPHILS % 62.8 % (39.0-77.0); PLATELET COUNT 168 10^3/UL (140-415); RED BLOOD COUNT 2.99 10^6/ul (4.20-5.40); RED CELL DISTRIBUTION WIDTH 13.2 % (11.5-14.5); WHITE BLOOD COUNT 13.1 10^3/ul (4.8-10.8)
[2016-10-12 05:29] LABS: MONOCYTES % 13.7 % (0.0-11.0)
[2016-10-12 05:47] LABS: CREATININE 0.81 mg/dl (0.44-1.00)
[2016-10-12] MEDS: DEXAMETHASONE 4 MG/ML 1 ML INJ IV SCH (06:20)
[2016-10-12] MEDS: PANTOPRAZOLE (EC) 40 MG TAB PO SCH (06:20)
[2016-10-12 08:07] VITALS: BP 118/69; RESP 20
[2016-10-12] MEDS: METOPROLOL (XL) 25 MG TAB PO SCH (09:00)
[2016-10-12] MEDS: CELECOXIB 200 MG CAP PO SCH (09:20)
[2016-10-12] MEDS: FERROUS FUMARATE (SR) TAB PO SCH (09:20)
[2016-10-12] MEDS: ASPIRIN (EC) 325 MG TAB PO SCH (09:20)
[2016-10-12] MEDS: FLUTICASONE 0.05% 16 GM NAS SPRAY NASAL SCH (09:20)
[2016-10-12] MEDS: SALMETEROL/FLUTICASONE 100/50 INHA INH SCH (09:20)
[2016-10-12] MEDS: DOCUSATE SODIUM 100 MG CAP PO SCH (09:20)
--- NOTE | 2016-10-12 10:42 | PN ---
Date/Time of Note Date/Time of Note DATE: 10/12/16 TIME: 10:40 Assessment/Plan Lines/Catheters IV Catheter Type (from Nrsg): Saline Lock Weeks in Place (from Nrsg): Yes Assessment/Plan Assessment/Plan Stable POD #3, s/p right TKA -pain meds as needed -dressing changed -continue DVT prophylaxis -OOB with PT -d/c home today with home health -follow up in the office with Dr. Fuentes as scheduled Subjective 24 Hr Interval Summary No acute overnight events. Denies significant pain. Progressing well with PT. VSS, afebrile. Would like to go home today. Exam/Review of Systems Vital Signs Vitals Vital Signs Date Time Temp Pulse Resp B/P Pulse Ox O2 Delivery O2 Flow Rate FiO2 10/12/16 08:07 98.1 72 20 118/69 93 10/11/16 20:10 Room Air 10/10/16 05:00 2.0 Intake and Output 10/11/16 10/11/16 10/12/16 15:00 23:00 07:00 Intake Total 1450 ml 900 ml Output Total 1000 ml 1100 ml Balance 450 ml -200 ml Exam Free Text/Dictation Dressing dry Incision clean, dry, and intact without redness or drainage Thigh soft 5/5 Quadriceps, Tibialis Anterior, EHL, Gastroc, Soleus, Peroneals Normal sensation Palpable DT/PT, CR <2 sec No distal edema Results Result Diagram: 10/12/1644110/12/16441 VIELKA VILLARREAL PA-C Oct 12, 2016 10:42
--- NOTE | 2016-10-12 10:59 | CONS ---
Date/Time of Note Date/Time of Note DATE: 10/12/16 TIME: 10:58 Assessment/Plan Assessment/Plan Additional Assessment/Plan 1. Stable right knee replacement. 2. BP well controlled 3. Can dc if ok with ortho and PT Consultation Date/Type/Reason Admit Date/Time Oct 09, 2016 at 06:09 Initial Consult Date Detailed Summary Respiratory: No shortness of breath Cardiovascular: No chest pain Gastrointestinal: no complaints Genitourinary: no complaints Musculoskeletal: bone/joint pain (mild right knee pain) Exam/Review of Systems Vital Signs Vitals Vital Signs Date Time Temp Pulse Resp B/P Pulse Ox O2 Delivery O2 Flow Rate FiO2 10/12/16 08:07 98.1 72 20 118/69 93 10/11/16 20:10 Room Air 10/10/16 05:00 2.0 Intake and Output 10/11/16 10/11/16 10/12/16 15:00 23:00 07:00 Intake Total 1450 ml 900 ml Output Total 1000 ml 1100 ml Balance 450 ml -200 ml Exam Neck: No jvd Respiratory: clear to auscultation Cardiovascular: regular rate and rhythm Gastrointestinal: soft Extremities: No edema (and no calf tend) Results Result Diagram: 10/12/16 0442 10/12/16 0442 Results 24 hrs Laboratory Tests Test 10/12/16 04:42 White Blood Count 13.1 H Red Blood Count 2.99 L Hemoglobin 9.6 L Hematocrit 30.4 L Mean Corpuscular Volume 101.7 H Mean Corpuscular Hemoglobin 32.1 Mean Corpuscular Hemoglobin Concent 31.6 L Red Cell Distribution Width 13.2 Platelet Count 168 Mean Platelet Volume 11.1 H Neutrophils % 62.8 Lymphocytes % 21.0 Monocytes % 13.7 H Eosinophils % 1.9 Basophils % 0.3 Nucleated Red Blood Cells % 0.0 Neutrophils # 8.2 H Lymphocytes # 2.8 Monocytes # 1.8 H Eosinophils # 0.3 Basophils # 0.0 Nucleated Red Blood Cells # 0.0 Blood Urea Nitrogen 26 H Creatinine 0.81 Medications Medications Current Medications Oxycodone HCl (Roxicodone) 20 mg Q3H PRN PO PAIN LEVEL 8-10; Start 10/10/16 at 09:00 Oxycodone HCl (Roxicodone) 10 mg Q3H PRN PO PAIN LEVEL 4-7 Last administered on 10/11/16 06:42; Admin Dose 10 MG; Start 10/10/16 at 09:00 Oxycodone HCl (Roxicodone) 5 mg Q3H PRN PO PAIN LEVEL 1-3 Last administered on 10/12/16 01:36; Admin Dose 5 MG; Start 10/10/16 at 09:00 Zolpidem Tartrate (Ambien) 5 mg HS PRN PO INSOMNIA; Start 10/09/16 at 21:00 Miscellaneous Information (Note) NOTE XX ; Start 10/09/16 at 11:00 Aspirin (Ecotrin) 325 mg BID PO Last administered on 10/12/16 09:20; Admin Dose 325 MG; Start 10/10/16 at 09:00 Celecoxib (Celebrex) 200 mg BID PO Last administered on 10/12/16 09:20; Admin Dose 200 MG; Start 10/10/16 at 09:00 Dexamethasone (Decadron) 4 mg DAILY@07 IV Last administered on 10/12/16 06:20; Admin Dose 4 MG; Start 10/10/16 at 07:00; Stop 10/13/16 at 06:59 Pantoprazole (Protonix Tab) 40 mg DAILY@06 PO Last administered on 10/12/16 06: 20; Admin Dose 40 MG; Start 10/11/16 at 06:00 Docusate Sodium/ Ferrous Fumarate (Pauly-Sequels) 1 tab BID PO Last administered on 10/12/16 09:20; Admin Dose 1 TAB; Start 10/10/16 at 09:00 Docusate Sodium (Colace) 200 mg BID PO Last administered on 10/12/16 09:20; Admin Dose 200 MG; Start 10/10/16 at 09:00; Stop 10/13/16 at 08:59 Simethicone (Mylicon) 80 mg TID PRN PO DISTENSION/GAS/BLOATING; Start 10/09/16 at 11:00 Senna/Docusate Sodium (Senokot-S) 2 tab BID PRN PO CONSTIPATION Last administered on 10/10/16 18:11; Admin Dose 2 TAB; Start 10/09/16 at 11:00 Magnesium Hydroxide (Milk Of Mag) 30 ml HS PRN PO CONSTIPATION; Start 10/09/16 at 11:00 Bisacodyl (Dulcolax Supp) 10 mg DAILY PRN [place] CONSTIPATION; Start 10/09/16 at 11 :00 Sodium Biphosphate/ Sodium Phosphate (Fleet Enema) 133 ml DAILY PRN [place] CONSTIPATION; Start 10/09/16 at 11:00 Diphenhydramine HCl (Benadryl) 25 mg Q4H PRN IM ITCHING OR RASH; Start at 16:00 Ketorolac Tromethamine (Toradol) 15 mg DAILY@06 PRN INJ ADMINSTER BY SURGEON ONLY; Start 10/10/16 at 06:00; Stop 10/14/16 at 05:59 Bupivacaine HCl/ Epinephrine Bitart (Marcaine 0.25%/ Epi (Sdv) 30 ml) 20 ml DAILY@06 PRN INJ ADMINSTER BY SURGEON ONLY; Start 10/10/16 at 06:00; Stop at 05:59 Naloxone HCl (Narcan) 0.2 mg Q2M PRN IV DECREASED REPIRATORY RATE; Start at 11:00 Fluticasone Propionate (Flonase 0.05% Nasal) 1 spray BID NASAL Last administered on 10/12/16 09:20; Admin Dose 1 SPRAY; Start 10/09/16 at 21:00 Metoprolol Succinate (Toprol Xl) 25 mg DAILY PO Last administered on 10/10/16 20:58; Admin Dose 25 MG; Start 10/10/16 at 03:00 Salmeterol Xinafoate/ Fluticasone 1 inh 1 inh BID INH Last administered on 09:20; Admin Dose 1 INH; Start 10/09/16 at 21:00 Vancomycin HCl (Vancocin) 250 ml @ 125 mls/hr Q24H IVPB Last administered on 15:30; Admin Dose 125 MLS/HR; Start 10/11/16 at 15:00 Polyethylene Glycol (Miralax) 17 gm DAILY PO Last administered on 10/11/16 21: 08; Admin Dose 17 GM; Start 10/10/16 at 19:00 Ondansetron HCl (Zofran Inj) 4 mg Q6H PRN IV NAUSEA AND/OR VOMITING Last administered on 10/11/16 11:10; Admin Dose 4 MG; Start 10/11/16 at 11:00 JASON STOKES MD Oct 12, 2016 10:59
[2016-10-12] MEDS: VANCOMYCIN 1 GM in NS 250 ML IVPB SCH (15:00)
--- NOTE | 2016-10-14 08:10 | DS ---
Date/Time of Note Date/Time of Note DATE: 10/14/16 TIME: 08:07 Discharge Summary Admission/Discharge Info Admit Date/Time Oct 09, 2016 at 06:09 Discharge Date/Time Oct 12, 2016 at 16:00 Final Diagnosis Status post right total knee arthroplasty. Patient Condition: Stable Hospital Course On the day of admission, the patient underwent right total knee arthroplasty Intraoperative complications: None Postoperative complications: None The patient was given prophylactic antibiotics and anticoagulants. On the day of surgery and first postoperative day patient was started on gait training and was taught usual restrictions following knee replacement Suction drain removed on the first postoperative day and the dressings were changed. The wound was found to be clean and healing well. There was no sign of infection. Pain cocktail given. IV Vanco given for infection prophylaxis due to patient's elevated white blood cell count of around 18. Patient was observed throughout hospital stay with white blood cell count trending downward. On the second postoperative day, patient continued with inpatient PT. Dressings were changed. Wound was found to be clean and healing well. No signs of infection. Pain cocktail given. On the day of discharge, the wound was clean and healing well; there was no sign of infection. The dressings were changed. Discharge Temperature: 98.1 Discharge White Blood Cell Count: 13.1 Discharge Hemoglobin: 9.6 The patient was discharged home with home health. Arrangements were made for visiting nurses and home health/physical therapy. Tegaderm with pad also provided for patient. Instructions given on how to use to keep wound dry while showering. Patient may discontinue use of Tegaderm with pad after joshua have been removed around 10 days postoperatively. The patient will be seen in office at scheduled postoperative evaluation date given on their preoperative exam. Should patient complain of any problems prior to scheduled postoperative evaluation date, they may call into outpatient clinic to determine if they need to be scheduled at sooner appointment to be seen immediately if needed. Discharge medications: As per medication reconciliation form Diet: Same as preadmission diet. This is Nita Cabrera PA-C dictating discharge summary for Dr. Eliceo Fuentes. Home Meds Reported Medications Fluticasone Propionate (Flonase Allergy Relief) 9.9 Ml [place].susp, 1 SPRAY NASAL BID, #1 BOTTLE TO EACH NOSTRIL 10/09/16 Salmeterol Xinaf-Fluticasone* (Advair*) 100/50 Diskus Inhaler, 1 INH INHALATION BID, #1 INHALER 10/09/16 Potassium Chloride* (Klor-Con*) 20 Meq Tabsr, 10 MEQ PO DAILY, TAB.SA 10/09/16 Lisinopril/Hydrochlorothiazide (Lisinopril-Hctz 20-25 mg Tab) 1 Each Tablet, 1 EACH PO, TAB 10/08/16 Metoprolol Succinate* (Toprol XL*) 25 Mg Tab.sr.24h, 25 MG PO DAILY, #30 TAB 10/08/16 Misoprostol (Misoprostol) 200 Mcg Tablet, 200 MCG PO BID, TAB 10/08/16 Diclofenac Sodium* (Diclofenac Sodium*) 75 Mg Tablet., 75 MG PO BID, #60 TAB 10/08/16 Follow-up Plan On postoperative visit 3 weeks after surgery. Appointment given to her on preoperative exam. Pending Labs Laboratory Tests Test 10/13/16 13:53 Lab Scanned Report REFERENCE [id number] NITA GALLOWAY PA-C Oct 14, 2016 08:10
== END 2016-10-12 16:00 | disposition home health service (06) | DRG 470 ==
LOC: REC 06:09 → MS1 11:58
PROC: 0SRC0J9 Replacement of Right Knee Joint with Synthetic Substitute, Cemented, Open Approach (ICD-10-PCS; principal; 2016-10-09 07:00)
DX: M17.11 Unilateral primary osteoarthritis, right knee (principal); I10 Essential (primary) hypertension; D72.829 Elevated white blood cell count, unspecified; E66.9 Obesity, unspecified; Z68.34 Body mass index [BMI] 34.0-34.9, adult
CPT/HCPCS: 71010; 73560; 80053; 82565; 84520; 85025; 85610; 85730; 86850; 86900; 86901; 86920; 88304; 88311; 97110; 97116; 97163; 97167; 97530; C1776; J0131; J0690; J0735; J1100; J1885; J2274; J2405; J2795; J3370; J7050; J7120; J7121

== ENCOUNTER → 2016-10-24 | Outpatient (CLI) | payer MEDICARE, OTHER ==
[~2016-10-24] MED LIST changes: -ACETAMINOPHEN 1000MG/100ML IV 100 ML IVPB ONE; +ADV10050 INHALATION; -CELECOXIB 200 MG CAP PO ONE; -DEXAMETHASONE 4 MG/ML 1 ML INJ IV ONE; +FLUT9.9S NASAL; -KNEE PAIN COCKTAIL VANCO INJ SCH; -LACTATED RINGER'S 1,000 ML IV* SCH; -LANSOPRAZOLE 30 MG CAP PO ONE; -ONDANSETRON 4 MG INJ IV ONE; +POTA-57 PO; -SOD CHLORIDE 0.9% IVPB ONE; -TRANEXAMIC ACID IVPB ONE; -VANCOMYCIN 1 GM (PMX) 250 ML IVPB ONE; -oxyCODONE (CR) 10 MG TAB [oxyCONTIN] PO ONE
--- NOTE | 2016-10-24 14:58 | PN ---
Date/Time of Note Date/Time of Note DATE: 10/24/16 TIME: 14:51 Outpatient Progress Note Chief Complaint 2 week postop status post right total knee replacement on 10/09/2016. HPI 81-year-old female presents today for two-week postoperative visit status post . Patient presents 1 week early from scheduled postoperative visit as she experienced severe pain exacerbation with erythema to the right knee and right ankle yesterday. Patient had joshua removed yesterday by home health nurse. Redness and pain was present prior to staple removal. Patient states that earlier that day and the day before she had physical therapy sessions with aggressive physical therapy in regards to flexion and extension of the right knee as well as gait training and strengthening to the quadriceps. Since yesterday, patient states that pain has improved and erythema has dissipated. She also had elevated blood pressure around 170 systolic, per patient account. She does state that she feels "much better" today. No discharge or complications to the surgical wound. Denies any chest pain/tightness, shortness of breath. Denies any calf pain with ambulation but she does experience some discomfort to the calf. Patient states that she had an elevated temperature of 99 yesterday. Presents today 1 week early due to increased concern after pain exacerbation yesterday. She does state that [place] was effective in alleviating her pain complaints. Patient also mentions that she was able to walk independently and has continued to walk independently 1 week after surgery. Review of Systems Const: No Fever, no chills, no Fatigue, normal appetite, no diaphoresis. Resp: No SOB, no wheezing, no chest pain. CV: No chest pain, no palpitaions, no LAWSON. Physical Exam Blood pressure 139/63, temperature 98.8, pulse 84, respiratory rate 12, height 5 feet 2 inches, weight 190 pounds. General Appearance: well-developed, well-nourished, in no acute distress. Right knee: No increased erythema on exam today during inspection. Increased temperature to palpation. No significant tenderness to palpation. Mild discomfort on palpation to the right knee. Patient has complaints of around 4-5 /10 on the pain scale with palpation to the calf. Possible positive Homans sign. No complaints of any claudication or pain with weightbearing to the calf. No shortness of breath on exam today. No chest pain/tightness. Patient has full active extension to the right knee with flexion up to 120. No pain with range of motion. Patient is walking independently although she does present with 3 point cane today. Decreased sensation to the lateral surgical wound. Normal sensory examination to the right side. Allergies Coded Allergies: No Known Allergy (Unverified , 10/08/16) NKA PER [employer] PAIN COCKTAIL ORDER SHEET Assessment/Plan -Wound healing well after staple removal. No signs of infection. -Continue ASA 325 mg twice daily for DVT prophylaxis until 6 weeks status post surgery. -Venous Doppler to the right lower extremity ordered today for rule out of possible DVT due to ongoing calf pain especially with direct pressure. -Patient progressing well. -Follow-up at 3 week postop appointment. We will see patient in 1 week. -Patient made aware that they may follow-up sooner, should they experience any issues or complications as we will be glad to see them. -Order for outpatient physical therapy given today with focus on improved range of motion. Dr. Fuentes was also present during exam and agrees with plan. Medications Home Meds Reported Medications Fluticasone Propionate (Flonase Allergy Relief) 9.9 Ml [place].susp, 1 SPRAY NASAL BID, #1 BOTTLE TO EACH NOSTRIL 10/09/16 Salmeterol Xinaf-Fluticasone* (Advair*) 100/50 Diskus Inhaler, 1 INH INHALATION BID, #1 INHALER 10/09/16 Potassium Chloride* (Klor-Con*) 20 Meq Tabsr, 10 MEQ PO DAILY, TAB.SA 10/09/16 Lisinopril/Hydrochlorothiazide (Lisinopril-Hctz 20-25 mg Tab) 1 Each Tablet, 1 EACH PO, TAB 10/08/16 Metoprolol Succinate* (Toprol XL*) 25 Mg Tab.sr.24h, 25 MG PO DAILY, #30 TAB 10/08/16 Misoprostol (Misoprostol) 200 Mcg Tablet, 200 MCG PO BID, TAB 10/08/16 Diclofenac Sodium* (Diclofenac Sodium*) 75 Mg Tablet., 75 MG PO BID, #60 TAB 10/08/16 NITA GALLOWAY PA-C Oct 24, 2016 14:58
== END | disposition home or self-care (01) ==
LOC: HKI 14:04
DX: Z47.1 Aftercare following joint replacement surgery (principal); G89.18 Other acute postprocedural pain; M25.561 Pain in right knee

== ENCOUNTER → 2016-10-30 | Outpatient (CLI) | payer MEDICARE, OTHER ==
--- NOTE | 2016-10-30 15:01 | PN ---
Date/Time of Note Date/Time of Note DATE: 10/30/16 TIME: 14:56 Outpatient Progress Note Chief Complaint 3 week postop appointment status post right total knee arthroplasty. HPI 81-year-old female presents today for 3 week postop appointment regarding right total knee arthroplasty that was performed on 10/09/2016. Patient was seen last week on 10/24/2016 for calf pain. Patient had Doppler ultrasound which was negative. Patient denies any ongoing calf pain. States that knee pain is significantly improved. She does continue to experience moderate pain however, with physical therapy. Denies any falls. Currently using single-point cane for assisted ambulation. Patient states that she has been doing well. Has recently finished at home physical therapy but has not initiated outpatient physical therapy due to lack of transportation. Denies any chest pain, shortness of breath. Review of Systems Const: No Fever, no chills, no Fatigue, normal appetite, no diaphoresis. Resp: No SOB, no wheezing, no chest pain. CV: No chest pain, no palpitaions, no LAWSON. Physical Exam Blood pressure is 136/61, temperature is 98.7, pulse is 71, respiratory rate is 12, height is 5 feet 2 inches, weight is 190 pounds. General Appearance: well-developed, well-nourished, in no acute distress. Right knee: Surgical wound to the right knee continues to heal well with no signs of infection. Patient is ambulating with assisted ambulation using single -point cane. No tenderness to palpation to the right knee today. Patient is able to extend up to 0 and actively flex up to 120. Patient does experience pain/aching with range of motion. Normal sensory examination to light touch. 5 /5 strength on resistance with flexion and extension. Doppler: Venous Doppler performed on 10/24/2016 with a read of "no evidence of DVT right lower extremity." Rest of report is in patient's chart. Allergies Coded Allergies: No Known Allergy (Unverified , 10/08/16) NKA PER [employer] PAIN COCKTAIL ORDER SHEET Assessment/Plan -Wound healing well after staple removal. No signs of infection. -Continue ASA 325 mg twice daily for DVT prophylaxis until 6 weeks status post surgery. -No signs of DVT. -Patient progressing well. -Follow-up at 6 week postop appointment. X-rays will be performed at 6 weeks postoperative appointment. -Patient made aware that they may follow-up sooner, should they experience any issues or complications as we will be glad to see them. -Order for outpatient physical therapy was advised to initiate as soon as possible with focus on improved range of motion and strengthening. Gait training as well. Medications Home Meds Reported Medications Fluticasone Propionate (Flonase Allergy Relief) 9.9 Ml [place].susp, 1 SPRAY NASAL BID, #1 BOTTLE TO EACH NOSTRIL 10/09/16 Salmeterol Xinaf-Fluticasone* (Advair*) 100/50 Diskus Inhaler, 1 INH INHALATION BID, #1 INHALER 10/09/16 Potassium Chloride* (Klor-Con*) 20 Meq Tabsr, 10 MEQ PO DAILY, TAB.SA 10/09/16 Lisinopril/Hydrochlorothiazide (Lisinopril-Hctz 20-25 mg Tab) 1 Each Tablet, 1 EACH PO, TAB 10/08/16 Metoprolol Succinate* (Toprol XL*) 25 Mg Tab.sr.24h, 25 MG PO DAILY, #30 TAB 10/08/16 Misoprostol (Misoprostol) 200 Mcg Tablet, 200 MCG PO BID, TAB 10/08/16 Diclofenac Sodium* (Diclofenac Sodium*) 75 Mg Tablet., 75 MG PO BID, #60 TAB 10/08/16 NITA GALLOWAY PA-C Oct 30, 2016 15:01
== END | disposition home or self-care (01) ==
LOC: HKI 14:11
DX: Z47.1 Aftercare following joint replacement surgery (principal); Z96.651 Presence of right artificial knee joint

== ENCOUNTER → 2016-11-20 | Outpatient (CLI) | payer MEDICARE, OTHER ==
--- NOTE | 2016-11-20 14:57 | PN ---
Date/Time of Note Date/Time of Note DATE: 11/20/16 TIME: 14:53 Outpatient Progress Note Chief Complaint 6 week follow-up status post right total knee replacement. HPI 81-year-old female presents today for 6 week follow-up status post right total knee replacement performed on 10/09/2016. Denies any pain or complaints to the right knee as she continues to improve. Patient has initiated outpatient physical therapy in which she has noticed increased progress in regards to her functionality in returning to activities of daily living. Patient is walking independently without use of assisted ambulatory device. Denies any chest pain/ tightness, shortness of breath or calf pain. Patient continues to do well status post knee replacement. She does mention however, she has been diagnosed with recent UTI about 1 week ago and put on ciprofloxacin. Patient suffered side effects from ciprofloxacin as she felt she had multiple complaints such as GI upset and feeling "weird" while on antibiotics. Patient was prescribed a 7 day regimen of ciprofloxacin but states she stopped taking after 5 days. She called ahead to her primary care physician who approved patient stopping medication at 5 days, per patient account. She is no longer having any urinary symptoms such as increased urinary frequency or burning sensation. Review of Systems Const: No Fever, no chills, no Fatigue, normal appetite, no diaphoresis. Resp: No SOB, no wheezing, no chest pain. CV: No chest pain, no palpitaions, no LAWSON. Physical Exam Blood pressure is 145/63, temperature is 99.4, pulse is 80, respiratory rate is 12, height is 5 feet 2 inches, weight is 180 pounds General Appearance: well-developed, well-nourished, in no acute distress. Right knee: Surgical wound is healing well. Normal scarring. No tenderness to palpation on exam today. Gait is normal and nonantalgic. Normal sensory examination to light touch. Patient has active range of motion of 0-120. No pain with range of motion. Negative Homans sign. Imaging X-ray of the right knee performed on 11/20/2016 showing all components appearing well aligned, attached and integrated to the bone. No signs of any lucency between metal and bone. Allergies Coded Allergies: No Known Allergy (Unverified , 10/08/16) NKA PER [employer] PAIN COCKTAIL ORDER SHEET Assessment/Plan -Patient progressing well -Surgical wound continues to heal well. -No signs of infection or DVT on exam. -X-rays showing no abnormalities in regards to prosthesis attachment to bone. -Range of motion is improved status post total knee replacement. -Continue with outpatient physical therapy. -Antibiotic prophylaxis card provided today. -Follow-up 6 months status post surgery. If patient is doing well at that time , possible follow-up on as-needed basis from that point. Dental prophylaxis discussed in detail today. Patient given prophylaxis card with antibiotic options. Should patient have allergy to specific medication ( eg penicillin) alternative options are also provided on the card. Patient is aware that antibiotics should be taken prior to any procedures to prevent increased risk of infection to the joint. Patient is aware that this will be for the rest of their life. Patient states understanding and compliance. Medications Home Meds Reported Medications Fluticasone Propionate (Flonase Allergy Relief) 9.9 Ml [place].susp, 1 SPRAY NASAL BID, #1 BOTTLE TO EACH NOSTRIL 10/09/16 Salmeterol Xinaf-Fluticasone* (Advair*) 100/50 Diskus Inhaler, 1 INH INHALATION BID, #1 INHALER 10/09/16 Potassium Chloride* (Klor-Con*) 20 Meq Tabsr, 10 MEQ PO DAILY, TAB.SA 10/09/16 Lisinopril/Hydrochlorothiazide (Lisinopril-Hctz 20-25 mg Tab) 1 Each Tablet, 1 EACH PO, TAB 10/08/16 Metoprolol Succinate* (Toprol XL*) 25 Mg Tab.sr.24h, 25 MG PO DAILY, #30 TAB 10/08/16 Misoprostol (Misoprostol) 200 Mcg Tablet, 200 MCG PO BID, TAB 10/08/16 Diclofenac Sodium* (Diclofenac Sodium*) 75 Mg Tablet., 75 MG PO BID, #60 TAB 10/08/16 NITA GALLOWAY PA-C November 20, 2016 14:57
--- NOTE | 2016-11-20 16:10 | RADRPT ---
PROCEDURE: Right knee series. CLINICAL INDICATION: Right knee pain. Postop. TECHNIQUE: 3 views of the right knee are available for review. COMPARISON: Right knee series 10/09/2016 FINDINGS: The the patient is status post total right knee arthroplasty. Alignment is grossly anatomic. Hardw are appears intact. There is no evidence of hardware fracture or failure. No erosions are seen. O verlying soft tissues are unremarkable. IMPRESSION: 1. Total right knee arthroplasty in anatomic alignment. RPTAT: KK .Uli Luong MD, MD Date Time Electronically viewed and signed by .Uli Luong MD, on 11/20/2016 16:09 .B/
== END | disposition home or self-care (01) ==
LOC: HKI 14:07
DX: Z09 Encounter for follow-up examination after completed treatment for conditions other than malignant neoplasm (principal); Z96.651 Presence of right artificial knee joint
CPT/HCPCS: 73562; G0463